=== PATIENT | female | born 1990 | race Caucasian/White ===

== ENCOUNTER 2017-03-20 10:35 | Emergency (ER) | payer SELFPAY ==
[2017-03-20] MEDS ORDERED: MOTRIN 600 MG PO ONE (10:50)
[2017-03-20] MEDS ORDERED: MOTRIN 600 MG ONE (10:57)
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
[2017-03-20 11:26] VITALS: BP 113/67; PULSE 72; O2SAT 98
--- NOTE | 2017-03-20 21:11 | XRAY ---
Indication: Pain following fall. Comparison: None 3 views of the left ankle demonstrates mild soft tissue swelling and tiny cuboid accessory ossicle. No other bony, articular, or soft tissue abnormalities.
== END 2017-03-20 11:26 | disposition home or self-care (01) ==
LOC: ED 10:35
DX: S93.402A Sprain of unspecified ligament of left ankle, initial encounter (principal); X50.0XXA Overexertion from strenuous movement or load, initial encounter
CPT/HCPCS: 73610; 99284; A9270-GY

== ENCOUNTER 2017-06-12 23:51 | Emergency (ER) | payer OTHER ==
[2017-06-13] MEDS ORDERED: Sodium Chloride 0.9% 1000 ML 1,000 ML ONE (00:14)
[2017-06-13] MEDS ORDERED: Sodium Chloride 0.9% 1000 ML 1,000 ML IV SCH (00:15)
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
[2017-06-13 00:24] LABS: BASOPHIL % 0.3 % (0.0-0.4); Eosinophil % 2.8 % (0.00-5.0); Granulocytes % 62.8 % (36.0-66.0); Lymphocytes % 26.5 % (24.0-44.0); Mean Cell Volume 90.4 fl (78-100); Mean Corpuscular Hemoglobin 30.1 pg (26-32); Mean Platelet Volume 11.8 fl (6-9.5); Monocytes % 7.6 % (0.0-12.0); Platelet Count 255 K/mm3 (150-450); Red Blood Count 4.28 M/mm3 (4.1-5.4); Red Cell Distribution Width 13.5 % (11.5-14.0); White Blood Count 13.2 K/mm3 (4.0-10.5)
[2017-06-13 00:28] LABS: A-aADO2 -4; ARTERIAL BLD GAS O2 SATURATION 99.3 % (95-100); ARTERIAL BLOOD GAS BASE EXCESS 0.5 (-2.0-2.0); ARTERIAL BLOOD GAS FIO2 21 %; ARTERIAL BLOOD GAS PO2 107 mmHg (75-100); ARTERIAL BLOOD GAS pH 7.43 (7.35-7.45)
[2017-06-13 00:29] LABS: ALLEN TEST OK? YES
[2017-06-13] MEDS ORDERED: Sodium Chloride 0.9% 1000 ML 0 ML ONE (00:30)
[2017-06-13 00:53] LABS: ALBUMIN 3.6 g/dL (3.4-5.0); ALKALINE PHOSPHATASE 64 U/L (46-116); BLOOD UREA NITROGEN 9 mg/dL (9-20); CHLORIDE 107 mEq/L (98-107); Carbon Dioxide 24.3 mEq/L (21-32); Glucose 99 MG/DL (70-110); LIPASE 64 U/L (73-393); MAGNESIUM 1.9 mg/dL (1.8-2.4); Potassium 3.7 mEq/L (3.5-5.1); SGOT/AST 28 U/L (15-37); SGPT/ALT 21 U/L (12-78); SODIUM 143 mEq/L (136-145); Total Protein 6.8 gm/dL (6.4-8.2)
[2017-06-13] MEDS ORDERED: Zithromax 250 MG TABLET PO ONE (01:26)
[2017-06-13] MEDS ORDERED: solu-MEDROL 125 MG IV ONE (01:30)
[2017-06-13] MEDS ORDERED: Zithromax 250 MG TABLET ONE (01:33)
[2017-06-13 01:34] LABS: Bilirubin NEGATIVE (NEGATIVE); Blood NEGATIVE Ery/ul (0-5); COMPLETE URINE MICROSCOPIC? YES; Collection Type VOID; Glucose NEGATIVE (NEGATIVE); Leukocyte Esterase 1+ (NEGATIVE); WBC 15-25 /HPF (0-5)
[2017-06-13] MEDS ORDERED: solu-MEDROL 125 MG ONE (01:34)
[2017-06-13 01:35] VITALS: BP 102/68; PULSE 74; O2SAT 99
[2017-06-13 01:35] LABS: ADD URINE CULTURE? YES (NO); Bacteria MODERATE /HPF (NEGATIVE); Epithelial Cells MANY /HPF (FEW); Yeast FEW /HPF (NEGATIVE)
--- NOTE | 2017-06-13 10:22 | XRAY ---
Indication: Chest pain, short of breath, and cough. Comparison: July 30, 2013. PA/lateral chest clear. Heart and mediastinal structures within normal limits. Bony thorax intact. Impression: Stable nonacute chest.
== END 2017-06-13 01:53 | disposition home or self-care (01) ==
LOC: ED 23:51
DX: T59.891A Toxic effect of other specified gases, fumes and vapors, accidental (unintentional), initial encounter (principal); J02.9 Acute pharyngitis, unspecified; R07.89 Other chest pain; R11.10 Vomiting, unspecified; R49.0 Dysphonia
CPT/HCPCS: 36000; 36415; 36600; 71020; 80053; 80307; 81000; 82150; 82375; 82803; 83690; 83735; 83880; 84484; 84703; 85025; 87086; 93005; 96360; 96374; 99284; J2930; A9270-GY

== ENCOUNTER 2021-11-07 10:32 | Emergency (ER) | payer OTHER ==
--- NOTE | 2021-11-07 10:39 | ERPHSYRPT ---
- History of Present Illness Time Seen by Provider: 11/07/21 10:39 Historian: patient Exam Limitations: no limitations Physician History: This is a 31-year-old white female who has had no abdominal surgeries in the past but has had a Mirena placed approximately 1 year ago. Patient states that since she has had that placed she intermittently has suprapubic pain. This morning, she had a sudden onset of stabbing suprapubic pain. It is localized and nonradiating. She denies any vaginal bleeding or abnormal vaginal discharge. The other episode she was able to take Tylenol and the pain subsided. However this time the pain was not controlled. She denies chest oskar n. She denies shortness of breath. She is allergic to Ceclor. Timing/Duration: today Activities at Onset: none Quality: sharpness, stabbing Abdominal Pain Onset Location: suprapubic Pain Radiation: no radiation Severity of Pain-Max: moderate Severity of Pain-Current: moderate Modifying Factors: Improves With: nothing Associated Symptoms: denies symptoms Previous symptoms: same symptoms as today, no recent treatment Allergies/Adverse Reactions: cefaclor [From Ceclor] Allergy (Unknown, Verified 06/13/17 00:05) Home Medications: Citalopram Hydrobromide [Celexa] 10 mg PO DAILY 03/20/17 [History] Bupropion HCl 150 mg Sr [Wellbutrin SR 150 MG] 150 mg PO DAILY 11/07/21 [History] Lemborexant [Dayvigo] 5 mg PO DAILY 11/07/21 [History] Lurasidone HCl [Latuda] 40 mg PO DAILY 11/07/21 [History] hydrOXYzine HCL [Hydroxyzine HCl] 50 mg PO DAILY 11/07/21 [History] Hx Tetanus, Diphtheria Vaccination/Date Given: Yes Hx Influenza Vaccination/Date Given: No Hx Pneumococcal Vaccination/Date Given: No Travel Risk - International Travel Have you traveled outside of the country in past 3 weeks: No - Coronavirus Screening Are you exhibiting any of the following symptoms?: No Close contact with a COVID-19 positive Pt in past 14-21 Days: No - Review of Systems Constitutional: No Symptoms Eyes: No Symptoms Ears, Nose, & Throat: No Symptoms Respiratory: No Symptoms Cardiac: No Symptoms Abdominal/Gastrointestinal: Abdominal Pain Genitourinary Symptoms: No Symptoms Musculoskeletal: No Symptoms Skin: No Symptoms Neurological: No Symptoms Psychological: No Symptoms Endocrine: No Symptoms Hematologic/Lymphatic: No Symptoms Immunological/Allergic: No Symptoms All Other Systems: Reviewed and Negative - Past Medical History Pertinent Past Medical History: Yes Neurological History: No Pertinent History ENT History: No Pertinent History Cardiac History: No Pertinent History Respiratory History: No Pertinent History Endocrine Medical History: No Pertinent History Musculoskeletal History: Other GI Medical History: No Pertinent History History: No Pertinent History Psycho-Social History: Depression Female Reproductive Disorders: No Pertinent History Other Medical History: RT SHOULDER INJURY - Past Surgical History Past Surgical History: Yes Neuro Surgical History: No Pertinent History Cardiac: No Pertinent History Respiratory: No Pertinent History Gastrointestinal: No Pertinent History Genitourinary: No Pertinent History Musculoskeletal: Orthopedic Surgery Female Surgical History: No Pertinent History Other Surgical History: SHOULDER-- nerve release. LT FOOT--tendon repair from for body - Social History Smoking Status: Former smoker Exposure to second hand smoke: Yes Drug Use: none Patient Lives Alone: No - Nursing Vital Signs Nursing Vital Signs: Initial Vital Signs Temperature 96.6 F 11/07/21 10:36 Pulse Rate 119 H 11/07/21 10:36 Respiratory Rate 22 11/07/21 10:36 Blood Pressure 119/83 11/07/21 10:36 O2 Sat by Pulse Oximetry 98 11/07/21 10:36 Pain Scale Pain Intensity 4 - Physical Exam General Appearance: mild distress, alert, anxiety, obese Eye Exam: PERRL/EOMI, eyes nml inspection Ears, Nose, Throat Exam: normal ENT inspection, moist mucous membranes Neck Exam: normal inspection, non-tender, supple, full range of motion Respiratory Exam: normal breath sounds, lungs clear, airway intact, No chest tenderness, No respiratory distress Cardiovascular Exam: regular rate/rhythm, normal heart sounds, normal peripheral pulses Gastrointestinal/Abdomen Exam: soft, normal bowel sounds, tenderness, guarding (Suprapubic region), No rebound Pelvic Exam: not done Rectal Exam: not done Back Exam: normal inspection, normal range of motion, No CVA tenderness, No vertebral tenderness Extremity Exam: normal inspection, normal range of motion, pelvis stable Neurologic Exam: alert, oriented x 3, cooperative, publicity director II-XII nml as tested, normal mood/affect, nml cerebellar function, nml station & gait, sensation nml Skin Exam: normal color, warm, dry Lymphatic Exam: No adenopathy SpO2 Interpretation: normal O2 Delivery: Room Air - Course Nursing assessment & vital signs reviewed: Yes Ordered Tests: Active Orders 24 hr Category Date Time Status IV Insertion STAT Care 11/07/21 10:45 Active ABDOMEN AND PELVIS W/0 CONTRAS [CT] Stat Exams 11/07/21 10:46 Completed AMYLASE Stat Lab 11/07/21 10:50 Completed CBC W DIFF Stat Lab 11/07/21 10:50 Completed CMP Stat Lab 11/07/21 10:50 Completed CULTURE,URINE Stat Lab 11/07/21 10:50 Received HCG,QUALITATIVE URINE Stat Lab 11/07/21 10:50 Completed LIPASE Stat Lab 11/07/21 10:50 Completed Lactic Acid Stat Lab 11/07/21 10:45 Completed UA W/RFX UR CULTURE Stat Lab 11/07/21 10:50 Completed Medication Summary Discontinued Medications Generic Name Dose Route Start Last Admin Trade Name Freq PRN Reason Stop Dose Admin Hydromorphone HCl 1 mg 11/07/21 10:45 11/07/21 11:00 Hydromorphone 1 Mg/1ml Inj 1 Mg/Ml Syringe IV 11/07/21 10:46 1 mg STAT ONE Administration Hydromorphone HCl Confirm 11/07/21 10:59 Hydromorphone 1 Mg/1ml Inj 1 Mg/Ml Syringe Administered 11/07/21 11:00 Dose 1 mg .ROUTE .STK-MED ONE Sodium Chloride 1,000 mls @ 999 mls/hr 11/07/21 10:45 11/07/21 11:00 Sodium Chloride 0.9% 1000 Ml IV 11/07/21 11:45 999 mls/hr .Q1H1M STA Administration Sodium Chloride Confirm 11/07/21 10:59 Sodium Chloride 0.9% 1000 Ml Administered 11/07/21 11:00 Dose 1,000 mls @ ud .ROUTE .STK-MED ONE Ondansetron HCl 4 mg 11/07/21 10:45 11/07/21 11:00 Ondansetron Hcl 4 Mg/2 Ml Vial IV 11/07/21 10:46 4 mg STAT ONE Administration Ondansetron HCl Confirm 11/07/21 10:59 Ondansetron Hcl 4 Mg/2 Ml Vial Administered 11/07/21 11:00 Dose 4 mg .ROUTE .STK-MED ONE Lab/Rad Data: Laboratory Result Diagrams 11/07/21 10:50 11/07/21 10:50 Laboratory Results 11/07/21 11/07/21 11/07/21 Range/Units 10:50 10:50 10:50 WBC 9.6 (4.0-10.5) K/mm3 RBC 4.51 (4.1-5.4) M/mm3 Hgb 13.5 (12.0-16.0) gm/dl Hct 40.4 (35-47) % MCV 89.6 (78-100) fl MCH 29.9 (26-32) pg MCHC 33.4 (32-36) g/dl RDW 13.7 (11.5-14.0) % Plt Count 317 (150-450) K/mm3 MPV 11.5 H (7.5-11.0) fl Gran % 65.0 (36.0-66.0) % Eos # (Auto) 0.46 (0-0.5) Absolute Lymphs (auto) 2.18 (1.0-4.6) Absolute Monos (auto) 0.68 (0.0-1.3) Lymphocytes % 22.6 L (24.0-44.0) % Monocytes % 7.1 (0.0-12.0) % Eosinophils % 4.8 (0.00-5.0) % Basophils % 0.5 (0.0-0.4) % Absolute Granulocytes 6.27 (1.4-6.9) Basophils # 0.05 (0-0.4) Sodium 137 (137-145) mmol/L Potassium 4.1 (3.5-5.1) mmol/L Chloride 104 (98-107) mmol/L Carbon Dioxide 25 (22-30) mmol/L Anion Gap 12.8 (5-15) MEQ/L BUN 10 (7-17) mg/dL Creatinine 1.06 H (0.52-1.04) mg/dL Estimated GFR > 60.0 ML/MIN Glucose 114 H (74-106) mg/dL Lactic Acid (0.4-2.0) Calcium 9.3 (8.4-10.2) mg/dL Total Bilirubin 0.60 (0.2-1.3) mg/dL AST 20 (14-36) U/L ALT 17 (0-35) U/L Alkaline Phosphatase 69 (38-126) U/L Serum Total Protein 6.9 (6.3-8.2) g/dL Albumin 4.0 (3.5-5.0) g/dL Amylase 39 (30-110) U/L Lipase 30 (23-300) U/L Urine Color (YELLOW) Urine Appearance (CLEAR) Urine pH (5-6) Ur Specific [place] (1.005-1.025) Urine Protein (Negative) Urine Ketones (NEGATIVE) Urine Blood (0-5) Bradly/ul Urine Nitrite (NEGATIVE) Urine Bilirubin (NEGATIVE) Urine Urobilinogen (0-1) mg/dL Ur Leukocyte Esterase (NEGATIVE) Urine WBC (Auto) (0-5) /HPF Urine RBC (Auto) (0-2) /HPF U Hyaline Cast (Auto) (0-2) /LPF U Epithel Cells (Auto) (FEW) /HPF Urine Bacteria (Auto) (NEGATIVE) /HPF Urine Mucus (Auto) (NEGATIVE) /HPF Urine Culture Reflexed (NO) Urine Glucose (NEGATIVE) mg/dL Urine HCG, Qual NEGATIVE (Negative) 11/07/21 11/07/21 Range/Units 10:50 10:45 WBC (4.0-10.5) K/mm3 RBC (4.1-5.4) M/mm3 Hgb (12.0-16.0) gm/dl Hct (35-47) % MCV (78-100) fl MCH (26-32) pg MCHC (32-36) g/dl RDW (11.5-14.0) % Plt Count (150-450) K/mm3 MPV (7.5-11.0) fl Gran % (36.0-66.0) % Eos # (Auto) (0-0.5) Absolute Lymphs (auto) (1.0-4.6) Absolute Monos (auto) (0.0-1.3) Lymphocytes % (24.0-44.0) % Monocytes % (0.0-12.0) % Eosinophils % (0.00-5.0) % Basophils % (0.0-0.4) % Absolute Granulocytes (1.4-6.9) Basophils # (0-0.4) Sodium (137-145) mmol/L Potassium (3.5-5.1) mmol/L Chloride (98-107) mmol/L Carbon Dioxide (22-30) mmol/L Anion Gap (5-15) MEQ/L BUN (7-17) mg/dL Creatinine (0.52-1.04) mg/dL Estimated GFR ML/MIN Glucose (74-106) mg/dL Lactic Acid 1.3 (0.4-2.0) Calcium (8.4-10.2) mg/dL Total Bilirubin (0.2-1.3) mg/dL AST (14-36) U/L ALT (0-35) U/L Alkaline Phosphatase (38-126) U/L Serum Total Protein (6.3-8.2) g/dL Albumin (3.5-5.0) g/dL Amylase (30-110) U/L Lipase (23-300) U/L Urine Color YELLOW (YELLOW) Urine Appearance CLOUDY (CLEAR) Urine pH 5.0 (5-6) Ur Specific [place] 1.018 (1.005-1.025) Urine Protein NEGATIVE (Negative) Urine Ketones NEGATIVE (NEGATIVE) Urine Blood NEGATIVE (0-5) Bradly/ul Urine Nitrite NEGATIVE (NEGATIVE) Urine Bilirubin NEGATIVE (NEGATIVE) Urine Urobilinogen NEGATIVE (0-1) mg/dL Ur Leukocyte Esterase SMALL (NEGATIVE) Urine WBC (Auto) 3-5 (0-5) /HPF Urine RBC (Auto) 3-5 (0-2) /HPF U Hyaline Cast (Auto) 0-2 (0-2) /LPF U Epithel Cells (Auto) FEW (FEW) /HPF Urine Bacteria (Auto) NONE (NEGATIVE) /HPF Urine Mucus (Auto) MODERATE (NEGATIVE) /HPF Urine Culture Reflexed YES (NO) Urine Glucose NEGATIVE (NEGATIVE) mg/dL Urine HCG, Qual (Negative) - Progress Progress: improved, pain not gone completely Progress Note: 11/07/21 12:24 CAT scan of the abdomen and pelvis without contrast shows no acute intra- abdominal intrapelvic process. There is mild fecal stasis present. Counseled pt/family regarding: lab results, diagnosis, need for follow-up, rad results - Departure Departure Disposition: Home Clinical Impression: Suprapubic pain, UTI (urinary tract infection) Condition: Stable Critical Care Time: No Additional Instructions: Drink plenty of fluids. Use Tylenol and ibuprofen for pain control. Take antibiotics as prescribed. Follow-up with your primary care physician for further management. Prescriptions: Ciprofloxacin [Cipro 500 MG] 500 mg PO BID #14 tablet
[2021-11-07] MEDS ORDERED: Hydromorphone 1 mg/ml Injection IV ONE (10:45)
[2021-11-07] MEDS ORDERED: Sodium Chloride 0.9% 1000 ML 1,000 ML IV STA (10:45)
[2021-11-07] MEDS ORDERED: Zofran 4 MG/2 ML VIAL IV ONE (10:45)
[2021-11-07 10:46] VITALS: O2SAT 98
[2021-11-07] MEDS ORDERED: Hydromorphone 1 mg/ml Injection ONE (10:59)
[2021-11-07] MEDS ORDERED: Zofran 4 MG/2 ML VIAL ONE (10:59)
[2021-11-07] MEDS ORDERED: Sodium Chloride 0.9% 1000 ML 1,000 ML ONE (10:59)
[2021-11-07 11:01] LABS: Absolute Neutrophil Ct (ANC) 6.27 (1.4-6.9); Basophil (Absolute #) 0.05 (0-0.4); Eosinophil % 4.8 % (0.00-5.0); Eosinophil (Absolute #) 0.46 (0-0.5); Hematocrit 40.4 % (35-47); Hemoglobin 13.5 gm/dl (12.0-16.0); Lymphocyte (Absolute #) 2.18 (1.0-4.6); Lymphocytes % 22.6 % (24.0-44.0); Mean Cell Volume 89.6 fl (78-100); Mean Corpuscular Hemoglobin 29.9 pg (26-32); Mean Corpuscular Hgb Concent. 33.4 g/dl (32-36); Mean Platelet Volume 11.5 fl (7.5-11.0); Monocyte (Absolute #) 0.68 (0.0-1.3); Monocytes % 7.1 % (0.0-12.0); Platelet Count 317 K/mm3 (150-450); Red Blood Count 4.51 M/mm3 (4.1-5.4); Red Cell Distribution Width 13.7 % (11.5-14.0); White Blood Count 9.6 K/mm3 (4.0-10.5)
[2021-11-07 11:12] LABS: Appearance CLOUDY (CLEAR); Bilirubin NEGATIVE (NEGATIVE); Blood NEGATIVE Ery/ul (0-5); Epithelial Cells FEW /HPF (FEW); Glucose NEGATIVE (NEGATIVE); Hyaline Casts 0-2 /LPF (0-2); Ketones NEGATIVE (NEGATIVE); Leukocyte Esterase SMALL (NEGATIVE); Mucus MODERATE /HPF (NEGATIVE); Nitrite NEGATIVE (NEGATIVE); Protein,Urine Dip NEGATIVE (Negative); Specific Gravity 1.018 (1.005-1.025); Urobilinogen NEGATIVE mg/dL (0-1)
[2021-11-07 11:25] LABS: ALKALINE PHOSPHATASE 69 U/L (38-126); AMYLASE 39 U/L (30-110); ANION GAP 12.8 MEQ/L (5-15); BLOOD UREA NITROGEN 10 mg/dL (7-17); CHLORIDE 104 mmol/L (98-107); Calcium 9.3 mg/dL (8.4-10.2); Carbon Dioxide 25 mmol/L (22-30); Creatinine 1 1.06 mg/dL (0.52-1.04); EST GLOMERULAR FILTRATION RATE > 60.0 ML/MIN; Glucose 114 mg/dL (74-106); LIPASE 30 U/L (23-300); Potassium 4.1 mmol/L (3.5-5.1); SGOT/AST 20 U/L (14-36); SGPT/ALT 17 U/L (0-35); SODIUM 137 mmol/L (137-145); Total Protein 6.9 g/dL (6.3-8.2)
[2021-11-07 11:47] VITALS: BP 109/62; PULSE 102
--- NOTE | 2021-11-07 11:50 | XRAY ---
Indication: Suprapubic pain 1 year. Multiple contiguous axial images obtained through the abdomen and pelvis without contrast. Comparison: February 10, 2011. Lung bases demonstrates mild bilateral dependent atelectasis. Heart not enlarged. Noncontrasted stomach and bowel loops appear nonobstructed with normal appendix. Again mild diffuse scattered colonic fecal debris. Uterus demonstrates new IUD with tip at level of fundus. No free fluid/air. Remaining liver, gallbladder, pancreas, spleen, adrenal glands, kidneys, ureters, bladder, uterus, and aorta are unremarkable for noncontrast exam. Osseous structures intact. No ventral or inguinal hernias. Impression: 1. New IUD in situ. 2. Again mild diffuse fecal stasis. 3. Remaining CT abdomen/pelvis without contrast exam is again negative.
== END 2021-11-07 13:10 | disposition home or self-care (01) ==
LOC: ED 10:32
DX: N39.0 Urinary tract infection, site not specified (principal); R10.30 Lower abdominal pain, unspecified; Z79.899 Other long term (current) drug therapy
CPT/HCPCS: 36000; 36415; 74176; 80053; 81001; 82150; 83605; 83690; 84703; 85025; 87086; 96360; 96374; 96375; 99284; J1170; J2405

== ENCOUNTER 2022-10-24 08:32 | Emergency (ER) | payer OTHER ==
[2022-10-24] MEDS ORDERED: Hydromorphone 1 mg/ml Injection IV ONE (09:08)
--- NOTE | 2022-10-24 09:16 | ERPHSYRPT ---
- History of Present Illness Time Seen by Provider: 10/24/22 09:08 Patient Subjective Stated Complaint: PT states "I am 9 weeks with twins, I had an ultrasound in [place] two weeks ago, that is how I found out I have twins. I am having horrible pain in my lower abdomen and pelvic area." Triage Nursing Assessment: PT presented alert and oriented X 3, skin pwd. Pt tearful and holding her abdomen. pt denied any bleeding, denied any care. PT is 5 para 2. Physician History: Patient is a 32-year-old 5 para 2 AB 2 white female who has to this point had no care who is with twins and 3 weeks ago was seen at [facility], [place] and had an ultrasound. The ultrasound there did confirm the age and the twins gestation. She started last p.m. with severe lower abdominal pain going through to the back she has had no bleeding whatsoever just severe crampy pain in the lower stomach and back. Timing/Duration: yesterday Activites at Onset: none Quality: cramping Severity of Pain-Max: moderate Severity of Pain-Current: moderate Sexual intercourse history: non-contributory Associated Symptoms: abdominal pain, , lower back pain Allergies/Adverse Reactions: cefaclor [From Ceclor] Allergy (Unknown, Verified 06/13/17 00:05) Home Medications: Bupropion HCl 150 mg Sr [Wellbutrin SR 150 MG] 150 mg PO DAILY 11/07/21 [History] Lemborexant [Dayvigo] 5 mg PO DAILY 11/07/21 [History] Lurasidone HCl [Latuda] 40 mg PO DAILY 11/07/21 [History] hydrOXYzine HCL [Hydroxyzine HCl] 50 mg PO DAILY 11/07/21 [History] Hx Tetanus, Diphtheria Vaccination/Date Given: Yes Hx Influenza Vaccination/Date Given: No Hx Pneumococcal Vaccination/Date Given: No Travel Risk - International Travel Have you traveled outside of the country in past 3 weeks: No - Coronavirus Screening Are you exhibiting any of the following symptoms?: No Close contact with a COVID-19 positive Pt in past 14-21 Days: No - Vaccine Status Have you recieved a Covid-19 vaccination: No - Review of Systems Constitutional: No Fever, No Chills Eyes: No Symptoms Ears, Nose, & Throat: No Symptoms Respiratory: No Cough, No Dyspnea Cardiac: No Chest Pain, No Edema, No Syncope Abdominal/Gastrointestinal: Abdominal Pain, No Nausea, No Vomiting, No Diarrhea Genitourinary Symptoms: , No Dysuria Musculoskeletal: Back Pain, No Neck Pain Skin: No Rash Neurological: No Dizziness, No Focal Weakness, No Sensory Changes Psychological: No Symptoms Endocrine: No Symptoms All Other Systems: Reviewed and Negative - Past Medical History Pertinent Past Medical History: Yes Neurological History: No Pertinent History ENT History: No Pertinent History Cardiac History: No Pertinent History Respiratory History: No Pertinent History Endocrine Medical History: No Pertinent History Musculoskeletal History: Other GI Medical History: No Pertinent History History: No Pertinent History Psycho-Social History: Anxiety, Bipolar, Depression Female Reproductive Disorders: No Pertinent History Other Medical History: RT SHOULDER INJURY - Past Surgical History Past Surgical History: Yes Neuro Surgical History: No Pertinent History Cardiac: No Pertinent History Respiratory: No Pertinent History Gastrointestinal: No Pertinent History Genitourinary: No Pertinent History Musculoskeletal: Orthopedic Surgery Female Surgical History: No Pertinent History Other Surgical History: SHOULDER-- nerve release. LT FOOT--tendon repair from for body - Social History Smoking Status: Current every day smoker How long have you smoked: years Exposure to second hand smoke: Yes Drug Use: none Patient Lives Alone: No - Female History Hx Last Menstrual Period: unknown Hx Now: Yes Gestational Age: 9 weeks - Nursing Vital Signs Nursing Vital Signs: Initial Vital Signs Temperature 97.6 F 10/24/22 08:37 Pulse Rate 89 10/24/22 08:37 Respiratory Rate 22 10/24/22 08:37 Blood Pressure 99/76 10/24/22 08:37 O2 Sat by Pulse Oximetry 99 10/24/22 08:37 Pain Scale Pain Intensity 0 - Physical Exam General Appearance: moderate distress Eye Exam: PERRL/EOMI, eyes nml inspection Ears, Nose, Throat Exam: normal ENT inspection, TMs normal, pharynx normal, moist mucous membranes Neck Exam: normal inspection, non-tender, supple, full range of motion Respiratory Exam: normal breath sounds, lungs clear, No respiratory distress Cardiovascular Exam: regular rate/rhythm, normal heart sounds, normal peripheral pulses Pelvic Exam: other (Pelvic pain) Rectal Exam: deferred Back Exam: normal inspection, normal range of motion, No CVA tenderness, No vertebral tenderness Extremity Exam: normal inspection, normal range of motion, pelvis stable Neurologic Exam: alert, oriented x 3, cooperative, plumbing drafter II-XII nml as tested, normal mood/affect, sensation nml, No motor deficits Skin Exam: normal color, warm, dry Lymphatic Exam: No adenopathy SpO2 Interpretation: normal SpO2: 99 O2 Delivery: Room Air - Course Nursing assessment & vital signs reviewed: Yes - Radiology Ultrasound Exam OB Ultrasound: Other (OB ultrasound shows both fetuses with heartbeat is 165 and 171 respectively cervix is long and closed there is a small subchorionic hemorrhage.) Ordered Tests: Active Orders 24 hr Category Date Time Status OB LIMITED [US] Stat Exams 10/24/22 09:00 Ordered CBC W DIFF Stat Lab 10/24/22 09:15 Completed CMP Stat Lab 10/24/22 09:15 Completed CULTURE,URINE Stat Lab 10/24/22 09:25 Received HCG, Quantitative (Inhouse) Stat Lab 10/24/22 09:15 Received UA W/RFX UR CULTURE Stat Lab 10/24/22 09:25 Completed Medication Summary Discontinued Medications Generic Name Dose Route Start Last Admin Trade Name Freq PRN Reason Stop Dose Admin Hydromorphone HCl 1 mg 10/24/22 09:08 10/24/22 09:27 Hydromorphone 1 Mg/1ml Inj 1 Mg/Ml Syringe IV 10/24/22 09:09 1 mg STAT ONE Administration Hydromorphone HCl Confirm 10/24/22 09:26 Hydromorphone 1 Mg/1ml Inj 1 Mg/Ml Syringe Administered 10/24/22 09:27 Dose 1 mg .ROUTE .STK-MED ONE Ondansetron HCl 4 mg 10/24/22 09:24 10/24/22 09:27 Ondansetron Hcl 4 Mg/2 Ml Vial IV 10/24/22 09:25 4 mg STAT ONE Administration Ondansetron HCl Confirm 10/24/22 09:26 Ondansetron Hcl 4 Mg/2 Ml Vial Administered 10/24/22 09:27 Dose 4 mg .ROUTE .STK-MED ONE Lab/Rad Data: Laboratory Result Diagrams 10/24/22 09:15 10/24/22 09:15 Laboratory Results 10/24/22 10/24/22 10/24/22 Range/Units 09:25 09:15 09:15 WBC 8.3 (4.0-10.5) x10^3/uL RBC 4.30 (4.1-5.4) x10^6/uL Hgb 12.8 (12.0-16.0) g/dL Hct 38.3 (35-47) % MCV 89.1 (78-100) fL MCH 29.8 (26-32) pg MCHC 33.4 (32-36) g/dL RDW 12.6 (11.5-14.0) % Plt Count 293 (150-450) x10^3/uL MPV 12.7 H (7.5-11.0) fL Gran % 71.5 H (36.0-66.0) % Immature Gran % (Auto) 0.5 H (0.00-0.4) % Nucleat RBC Rel Count 0.0 (0.00-0.1) % Eos # (Auto) 0.18 (0-0.5) x10^3/uL Immature Gran # (Auto) 0.04 H (0.00-0.03) x10^3u/L Absolute Lymphs (auto) 1.55 (1.0-4.6) x10^3/uL Absolute Monos (auto) 0.55 (0.0-1.3) x10^3/uL Absolute Nucleated RBC 0.00 (0.00-0.01) x10^3u/L Lymphocytes % 18.7 L (24.0-44.0) % Monocytes % 6.6 (0.0-12.0) % Eosinophils % 2.2 (0.00-5.0) % Basophils % 0.5 (0.0-0.4) % Absolute Granulocytes 5.93 (1.4-6.9) x10^3/uL Basophils # 0.04 (0-0.4) x10^3/uL Sodium 138 (137-145) mmol/L Potassium 4.2 (3.5-5.1) mmol/L Chloride 105 (98-107) mmol/L Carbon Dioxide 24 (22-30) mmol/L Anion Gap 13.6 (5-15) MEQ/L BUN 7 (7-17) mg/dL Creatinine 0.66 (0.52-1.04) mg/dL Estimated GFR > 60.0 ML/MIN Glucose 83 (74-106) mg/dL Calcium 9.4 (8.4-10.2) mg/dL Total Bilirubin 0.50 (0.2-1.3) mg/dL AST 16 (14-36) U/L ALT 15 (0-35) U/L Alkaline Phosphatase 63 (38-126) U/L Serum Total Protein 7.0 (6.3-8.2) g/dL Albumin 4.2 (3.5-5.0) g/dL Urine Color Yellow (Yellow) Urine Appearance Turbid A (Clear) Urine pH 7.5 (4.6-8.0) Ur Specific [place] 1.020 (1.005-1.030) Urine Protein Trace A (Negative) Urine Glucose (UA) Negative (Negative) mg/dL Urine Ketones Negative (Negative) Urine Blood Negative (Negative) Urine Nitrite Negative (Negative) Urine Bilirubin Negative (Negative) Urine Urobilinogen 1.0 A (0.2) mg/dL Ur Leukocyte Esterase Large A (Negative) U Hyaline Cast (Auto) NONE SEEN (0-2) /LPF Urine Microscopic RBC 0-2 (0-5) /HPF Urine Microscopic WBC 21-50 A (0-5) /HPF Ur Epithelial Cells Many A (None Seen) /HPF Urine Bacteria Moderate A (None Seen) /HPF Urine Culture Reflexed YES (NO) - Progress Progress: unchanged Air Movement: good Blood Culture(s) Obtained: No Antibiotics given: No - Departure Departure Disposition: Home Clinical Impression: Threatened miscarriage, Subchorionic hemorrhage Condition: Stable Critical Care Time: No Referrals: DOCTOR,NO FAMILY [Primary Care Provider] - Follow up/PCP as directed Instructions: Threatened Miscarriage (DC) Additional Instructions: Patient was informed to limit her activity and to take Tylenol for pain.
[2022-10-24] MEDS ORDERED: Zofran 4 MG/2 ML VIAL IV ONE (09:24)
[2022-10-24] MEDS ORDERED: Hydromorphone 1 mg/ml Injection ONE (09:26)
[2022-10-24] MEDS ORDERED: Zofran 4 MG/2 ML VIAL ONE (09:26)
[2022-10-24 09:36] LABS: Absolute Neutrophil Ct (ANC) 5.93 x10^3/uL (1.4-6.9); BASOPHIL % 0.5 % (0.0-0.4); Basophil (Absolute #) 0.04 x10^3/uL (0-0.4); Eosinophil % 2.2 % (0.00-5.0); Eosinophil (Absolute #) 0.18 x10^3/uL (0-0.5); Hematocrit 38.3 % (35-47); Hemoglobin 12.8 g/dL (12.0-16.0); IMMATURE GRAN # 0.04 x10^3u/L (0.00-0.03); IMMATURE GRAN % 0.5 % (0.00-0.4); Lymphocyte (Absolute #) 1.55 x10^3/uL (1.0-4.6); Lymphocytes % 18.7 % (24.0-44.0); Mean Cell Volume 89.1 fL (78-100); Mean Corpuscular Hemoglobin 29.8 pg (26-32); Mean Corpuscular Hgb Concent. 33.4 g/dL (32-36); Mean Platelet Volume 12.7 fL (7.5-11.0); Monocyte (Absolute #) 0.55 x10^3/uL (0.0-1.3); Monocytes % 6.6 % (0.0-12.0); Neutrophil % 71.5 % (36.0-66.0); Platelet Count 293 x10^3/uL (150-450); Red Cell Distribution Width 12.6 % (11.5-14.0); White Blood Count 8.3 x10^3/uL (4.0-10.5)
[2022-10-24 09:48] LABS: ALBUMIN 4.2 g/dL (3.5-5.0); ALKALINE PHOSPHATASE 63 U/L (38-126); ANION GAP 13.6 MEQ/L (5-15); BLOOD UREA NITROGEN 7 mg/dL (7-17); CHLORIDE 105 mmol/L (98-107); Calcium 9.4 mg/dL (8.4-10.2); Carbon Dioxide 24 mmol/L (22-30); Creatinine 1 0.66 mg/dL (0.52-1.04); EST GLOMERULAR FILTRATION RATE > 60.0 ML/MIN; Glucose 83 mg/dL (74-106); Potassium 4.2 mmol/L (3.5-5.1); SGOT/AST 16 U/L (14-36); SGPT/ALT 15 U/L (0-35); SODIUM 138 mmol/L (137-145)
[2022-10-24 10:09] LABS: Appearance Turbid (Clear); Bacteria Moderate /HPF (None Seen); Bilirubin Negative (Negative); Blood Negative (Negative); Epithelial Cells Many /HPF (None Seen); Glucose, Urine Negative (Negative); Hyaline Casts NONE SEEN /LPF (0-2); Ketones Negative (Negative); Leukocyte Esterase Large (Negative); Nitrite Negative (Negative); Ph 7.5 (4.6-8.0); Protein,Urine Dip Trace (Negative); RBC 0-2 /HPF (0-5); WBC 21-50 /HPF (0-5)
[2022-10-24 10:27] LABS: ADD URINE CULTURE? YES (NO)
[2022-10-24 10:35] VITALS: O2SAT 99
[2022-10-24 11:20] VITALS: BP 91/59; PULSE 70
--- NOTE | 2022-10-24 20:08 | XRAY ---
Indication: Threatened miscarriage. Limited OB ultrasound performed. Comparison: None Twin intrauterine appearing dichorionic diamniotic. Twin A heart rate is 165 BPM. Twin B heart rate is 171 BPM. Tiny 1.1 x 0.4 x 0.8 cm subchorionic hemorrhage. Cervical length is 4.3 cm. Comment: Preliminary report was given.
== END 2022-10-24 11:18 | disposition home or self-care (01) ==
LOC: ED 08:32
DX: O20.0 Threatened abortion (principal); Z3A.09 9 weeks gestation of pregnancy; O20.8 Other hemorrhage in early pregnancy; O30.041 Twin pregnancy, dichorionic/diamniotic, first trimester; R10.30 Lower abdominal pain, unspecified; Z79.899 Other long term (current) drug therapy; Z28.310 Unvaccinated for COVID-19; Z72.0 Tobacco use
CPT/HCPCS: 36415; 76815; 80053; 81001; 84702; 85025; 87086; 96374; 96375; 99283; J1170; J2405